=== PATIENT | male | born 1950 ===

== ENCOUNTER 2020-11-11 14:36 | Inpatient (IN) ==
[2020-11-11] MEDS ORDERED: GLUCAGON 1 MG VIAL IM PRN ×2 (17:08)
[2020-11-11] MEDS ORDERED: MAGNESIUM SULF RIDER 2 GM in PREMIX 1 EACH IV PRN (17:08)
[2020-11-11] MEDS ORDERED: MAGNESIUM SULF RIDER 4 GM in PREMIX 1 EACH IV PRN (17:08)
[2020-11-11] MEDS ORDERED: DEXTROSE 50% 25 GM/50 ML VIAL IV PRN ×2 (17:08)
[2020-11-11] MEDS ORDERED: ACETAMINOPHEN 325 MG TABLET PO PRN (17:08)
[2020-11-11] MEDS ORDERED: ONDANSETRON 4 MG/2 ML VIAL IV PRN (17:08)
[2020-11-11] MEDS ORDERED: LABETALOL 20 MG/4 ML SYRINGE IV PRN (18:36)
[2020-11-11] MEDS: ENOXAPARIN 30 MG/0.3 ML SYRINGE SUBCUT SCH (21:58)
[2020-11-11] MEDS: INSULIN REGULAR 100 UNIT/ML SUBCUT SCH (21:58)
[2020-11-12 05:18] LABS: Basophils % 0.6 % (0.0-0.8); Eosinophils # 0.1 10*3/uL (0.0-0.87); Eosinophils % 1.2 % (0.00-10.9); Hematocrit 30.2 VOL% (42.0-52.0); Hemoglobin 9.7 GM/DL (14.0-18.0); Immature Granulocytes % 0.4 %; Immature Granulocytes Absolute 0.02 #; Lymphocytes # 0.7 10*3/uL (1.4-4.0); Lymphocytes % 13.5 % (21.2-54.2); Mean Corpuscular HGB Conc 32.1 GM/DL (32-36); Mean Corpuscular Volume 95.3 FL (87-102); Mean Platelet Volume 10.3 FL (9.6-12.0); Monocytes % 8.9 % (1.7-12.7); Neutrophils % 75.4 % (38.7-73.9); Platelet Count 193 T/CUMM (130-400); Red Blood Count 3.17 MC/CUMM (3.8-5.5); Red Cell Distribution Width 13.2 % (9.3-17.3); White Blood Count 5.2 T/CUMM (4-12)
[2020-11-12 05:48] LABS: Albumin 1.8 G/DL (3.4-5.0); Bilirubin,Total 0.4 MG/DL (0.2-1.0); Calcium 8.3 MG/DL (8.5-10.1); Osmolality,Calculated 295.6 MOS/KG (273-304); Potassium 4.1 MMOL/L (3.5-5.1); Total Protein 5.3 G/DL (5.0-7.5)
[2020-11-12] MEDS: FUROSEMIDE 40 MG/4 ML VIAL IV SCH ×2 (10:18→17:19)
[2020-11-12] MEDS: PANTOPRAZOLE 40 MG TABLET PO SCH (10:18)
[2020-11-12] MEDS: carvediloL 3.125 MG TABLET PO SCH ×2 (10:18→20:46)
[2020-11-12] MEDS: INSULIN REGULAR 100 UNIT/ML SUBCUT SCH ×4 (10:19→22:32)
[2020-11-12] MEDS ORDERED: hydrOXYzine HCL 25 MG TABLET PO ONE (13:32)
[2020-11-12 14:06] LABS: Bilirubin,Urine Negative (Negative); Blood, Urine Small mg/dL (Negative); Glucose,Urine (UA) 50 mg/dL (Negative); Hyaline Casts,Urine 3 /LPF (0-3); Ketones,Urine Negative (Negative); Nitrite,Urine Negative (Negative); Protein,Urine 100 MG/DL; RBC,Urine 2 /HPF (0-4); Squamous Epithelial Cell,Urine Occasional /HPF (0-10); Urine Appearance CLEAR (Clear); Urine Color Colorless (Yellow); Urine Specific Gravity 1.006 (1.001-1.035); Urine Urobilinogen < 2.0 EU/DL (0.2-1.0); WBC,Urine <1 /HPF (0-6)
[2020-11-12 18:09] LABS: Protein/Creatinine Ratio,Urine 6.5 RATIO
[2020-11-12 18:10] LABS: Microalbum/Creat Ratio Random 4537.5 RATIO (0-30)
[2020-11-12] MEDS: ENOXAPARIN 30 MG/0.3 ML SYRINGE SUBCUT SCH (20:47)
[2020-11-13 05:39] LABS: Basophils % 0.4 % (0.0-0.8); Eosinophils # 0.1 10*3/uL (0.0-0.87); Eosinophils % 1.7 % (0.00-10.9); Hematocrit 28.5 VOL% (42.0-52.0); Immature Granulocytes % 0.2 %; Immature Granulocytes Absolute 0.01 #; Lymphocytes # 0.5 10*3/uL (1.4-4.0); Lymphocytes % 9.8 % (21.2-54.2); Mean Corpuscular HGB Conc 31.6 GM/DL (32-36); Mean Corpuscular Volume 97.6 FL (87-102); Mean Platelet Volume 10.1 FL (9.6-12.0); Monocytes % 5.6 % (1.7-12.7); Neutrophils % 82.3 % (38.7-73.9); Platelet Count 170 T/CUMM (130-400); Red Blood Count 2.92 MC/CUMM (3.8-5.5); Red Cell Distribution Width 12.9 % (9.3-17.3); White Blood Count 5.3 T/CUMM (4-12)
[2020-11-13 05:59] LABS: Calcium 8.2 MG/DL (8.5-10.1); Osmolality,Calculated 292.8 MOS/KG (273-304); Potassium 4.3 MMOL/L (3.5-5.1)
[2020-11-13 06:11] LABS: Alanine Aminotransferase 20 U/L (16-61); Albumin 1.8 G/DL (3.4-5.0); Alkaline Phosphatase 94 U/L (45-117); Aspartate Amino Transferase 20 U/L (0-37); Bilirubin,Indirect 0.3 MG/DL (0.0-1.0); Bilirubin,Total < 0.39 MG/DL (0.2-1.0); Total Protein 4.7 G/DL (5.0-7.5)
[2020-11-13] MEDS: INSULIN REGULAR 100 UNIT/ML SUBCUT SCH ×3 (10:55→16:43)
[2020-11-13] MEDS: carvediloL 3.125 MG TABLET PO SCH (10:56)
[2020-11-13] MEDS: PANTOPRAZOLE 40 MG TABLET PO SCH (10:56)
[2020-11-13] MEDS: FUROSEMIDE 40 MG/4 ML VIAL IV SCH (10:58)
[2020-11-13] MEDS ORDERED: ASPIRIN EC 81 MG TABLET PO SCH (11:30)
[2020-11-13] MEDS ORDERED: BUMETANIDE 1 MG/4 ML VIAL IV SCH (16:00)
[2020-11-13 16:19] VITALS: BP 115/68
== END 2020-11-13 18:30 | disposition home or self-care (01) | DRG 291 ==
LOC: N.TELEN → SUATTDRO 16:37
PROVIDERS: ADMIT Internal Medicine; ATTEND Internal Medicine

== ENCOUNTER 2021-02-25 05:54 | Inpatient (IN) ==
[2021-02-25] MEDS ORDERED: DEXTROSE 50% 25 GM/50 ML VIAL IV PRN (10:39)
[2021-02-25] MEDS ORDERED: GLUCAGON 1 MG VIAL IM PRN (10:39)
[2021-02-25] MEDS ORDERED: ACETAMINOPHEN 325 MG TABLET PO PRN (10:41)
[2021-02-25] MEDS ORDERED: ZALEPLON 5 MG CAPSULE PO PRN (10:41)
[2021-02-25 11:38] LABS: Calcium 7.4 MG/DL (8.5-10.1); Osmolality,Calculated 296.4 MOS/KG (273-304); Potassium 4.4 MMOL/L (3.5-5.1)
[2021-02-25] MEDS: INSULIN LISPRO 100 UNIT/ML SUBCUT SCH ×3 (12:37→23:33)
[2021-02-25] MEDS: ISOSORBIDE MONONITRATE 30 MG TABLET PO SCH (13:07)
[2021-02-25] MEDS: FUROSEMIDE 40 MG/4 ML VIAL IV SCH (16:30)
[2021-02-25] MEDS: hydrALAZINE 25 MG TABLET PO SCH ×2 (16:30→23:32)
[2021-02-25] MEDS: DOCUSATE SODIUM 100 MG CAPSULE PO SCH (23:31)
[2021-02-25] MEDS: ATORVASTATIN 20 MG TABLET PO SCH (23:32)
[2021-02-26 06:01] LABS: Basophils % 0.3 % (0.0-0.8); Eosinophils # 0.1 10*3/uL (0.0-0.87); Hematocrit 33.8 VOL% (42.0-52.0); Hemoglobin 10.5 GM/DL (14.0-18.0); Immature Granulocytes % 0.6 %; Immature Granulocytes Absolute 0.07 #; Lymphocytes # 2.4 10*3/uL (1.4-4.0); Mean Corpuscular HGB Conc 31.1 GM/DL (32-36); Mean Corpuscular Volume 94.2 FL (87-102); Mean Platelet Volume 10.4 FL (9.6-12.0); Neutrophils % 72.1 % (38.7-73.9); Platelet Count 249 T/CUMM (130-400); Red Blood Count 3.59 MC/CUMM (3.8-5.5); Red Cell Distribution Width 13.2 % (9.3-17.3); White Blood Count 11.8 T/CUMM (4-12)
[2021-02-26 06:23] LABS: Albumin 1.8 G/DL (3.4-5.0); Bilirubin,Total 0.5 MG/DL (0.2-1.0); Calcium 7.9 MG/DL (8.5-10.1); Osmolality,Calculated 290.3 MOS/KG (273-304); Potassium 3.6 MMOL/L (3.5-5.1); Risk Ratio 2.15; Thyroid Stimulating Hormone 10.3 uIU/ml (0.358-3.74); Total Protein 6.1 G/DL (6.4-8.2); VLDL Cholesterol 9.4 MG/DL
[2021-02-26] MEDS: INSULIN LISPRO 100 UNIT/ML SUBCUT SCH ×4 (08:40→21:02)
[2021-02-26] MEDS: ASPIRIN EC 81 MG TABLET PO SCH (08:42)
[2021-02-26] MEDS: DOCUSATE SODIUM 100 MG CAPSULE PO SCH ×2 (08:42→21:35)
[2021-02-26] MEDS: PANTOPRAZOLE 40 MG TABLET PO SCH (08:42)
[2021-02-26] MEDS: ISOSORBIDE MONONITRATE 30 MG TABLET PO SCH (08:42)
[2021-02-26] MEDS: FUROSEMIDE 40 MG/4 ML VIAL IV SCH ×2 (08:42→16:55)
[2021-02-26] MEDS: hydrALAZINE 25 MG TABLET PO SCH ×3 (08:43→21:35)
[2021-02-26] MEDS ORDERED: carvediloL 25 MG TABLET PO SCH (09:00)
[2021-02-26] MEDS ORDERED: ALBUTEROL/IPRATROPIUM 3 ML NEB RESP TX ONE (15:45)
[2021-02-26 16:46] LABS: Basophils % 0.1 % (0.0-0.8); Eosinophils % 0.1 % (0.00-10.9); Hematocrit 28.3 VOL% (42.0-52.0); Hemoglobin 9.3 GM/DL (14.0-18.0); Immature Granulocytes % 0.5 %; Immature Granulocytes Absolute 0.05 #; Lymphocytes % 10.6 % (21.2-54.2); Mean Corpuscular HGB Conc 32.9 GM/DL (32-36); Mean Corpuscular Volume 92.5 FL (87-102); Mean Platelet Volume 10.2 FL (9.6-12.0); Monocytes % 4.1 % (1.7-12.7); Neutrophils % 84.6 % (38.7-73.9); Platelet Count 177 T/CUMM (130-400); Red Blood Count 3.06 MC/CUMM (3.8-5.5); Red Cell Distribution Width 13.4 % (9.3-17.3); White Blood Count 9.8 T/CUMM (4-12)
[2021-02-26 17:05] LABS: Calcium 7.1 MG/DL (8.5-10.1); Osmolality,Calculated 291.5 MOS/KG (273-304)
[2021-02-26 18:04] LABS: Band Neutrophils 4 % (0-10); Total Cells Counted 100
[2021-02-26 18:06] LABS: Atypical Lymphocytes Few; Hypochromasia 2+; Lymphocytes 9 % (20-55); Microcytosis 1+; Ovalocytes Few; Segmented Neutrophils 82 % (50-85)
[2021-02-26 18:07] LABS: Acanthocytes 1+; Burr Cells Few; Platelet Estimate Normal; Polychromasia Few
[2021-02-26] MEDS: carvediloL 6.25 MG TABLET PO SCH (21:35)
[2021-02-26] MEDS: ATORVASTATIN 20 MG TABLET PO SCH (21:35)
[2021-02-26] MEDS: ISOSORBIDE DINITRATE 20 MG TABLET PO SCH (21:36)
[2021-02-27 05:19] LABS: Basophils % 0.4 % (0.0-0.8); Eosinophils # 0.1 10*3/uL (0.0-0.87); Eosinophils % 1.1 % (0.00-10.9); Hematocrit 24.3 VOL% (42.0-52.0); Hemoglobin 7.7 GM/DL (14.0-18.0); Immature Granulocytes % 0.5 %; Immature Granulocytes Absolute 0.04 #; Lymphocytes # 1.5 10*3/uL (1.4-4.0); Lymphocytes % 18.2 % (21.2-54.2); Mean Corpuscular HGB Conc 31.7 GM/DL (32-36); Mean Corpuscular Volume 92.7 FL (87-102); Mean Platelet Volume 9.9 FL (9.6-12.0); Monocytes % 6.1 % (1.7-12.7); Neutrophils % 73.7 % (38.7-73.9); Platelet Count 168 T/CUMM (130-400); Red Blood Count 2.62 MC/CUMM (3.8-5.5); Red Cell Distribution Width 13.4 % (9.3-17.3); White Blood Count 8.4 T/CUMM (4-12)
[2021-02-27 05:45] LABS: Calcium 7.2 MG/DL (8.5-10.1); Osmolality,Calculated 293.4 MOS/KG (273-304); Potassium 3.9 MMOL/L (3.5-5.1)
[2021-02-27 06:10] LABS: Platelet Estimate Normal
[2021-02-27 06:11] LABS: Anisocytosis 1+; Burr Cells 2+; Poikilocytosis 1+
[2021-02-27] MEDS: INSULIN LISPRO 100 UNIT/ML SUBCUT SCH ×4 (08:04→21:04)
[2021-02-27] MEDS ORDERED: carvediloL 12.5 MG TABLET PO SCH (09:00)
[2021-02-27] MEDS ORDERED: ISOSORBIDE MONONITRATE 30 MG TABLET PO SCH (09:00)
[2021-02-27] MEDS: DOCUSATE SODIUM 100 MG CAPSULE PO SCH ×2 (09:42→21:02)
[2021-02-27] MEDS: ISOSORBIDE DINITRATE 20 MG TABLET PO SCH ×3 (09:42→21:03)
[2021-02-27] MEDS: PANTOPRAZOLE 40 MG TABLET PO SCH (09:42)
[2021-02-27] MEDS: carvediloL 6.25 MG TABLET PO SCH ×2 (09:42→21:03)
[2021-02-27] MEDS: hydrALAZINE 25 MG TABLET PO SCH (09:42)
[2021-02-27] MEDS: FUROSEMIDE 40 MG/4 ML VIAL IV SCH ×2 (09:45→16:53)
[2021-02-27] MEDS ORDERED: ALBUTEROL/IPRATROPIUM 3 ML NEB RESP TX ONE (14:13)
[2021-02-27] MEDS: ATORVASTATIN 20 MG TABLET PO SCH (21:03)
[2021-02-28 04:37] LABS: Basophils % 0.3 % (0.0-0.8); Eosinophils # 0.2 10*3/uL (0.0-0.87); Eosinophils % 3.2 % (0.00-10.9); Hematocrit 24.3 VOL% (42.0-52.0); Hemoglobin 7.5 GM/DL (14.0-18.0); Immature Granulocytes % 0.3 %; Immature Granulocytes Absolute 0.02 #; Lymphocytes # 1.6 10*3/uL (1.4-4.0); Lymphocytes % 21.7 % (21.2-54.2); Mean Corpuscular HGB Conc 30.9 GM/DL (32-36); Mean Corpuscular Volume 94.6 FL (87-102); Mean Platelet Volume 10.1 FL (9.6-12.0); Neutrophils % 68.5 % (38.7-73.9); Platelet Count 181 T/CUMM (130-400); Red Blood Count 2.57 MC/CUMM (3.8-5.5); Red Cell Distribution Width 13.7 % (9.3-17.3); White Blood Count 7.2 T/CUMM (4-12)
[2021-02-28 04:59] LABS: Osmolality,Calculated 298.3 MOS/KG (273-304); Potassium 3.9 MMOL/L (3.5-5.1)
[2021-02-28 05:02] LABS: Hypochromasia 1+; Microcytosis 1+
[2021-02-28 05:03] LABS: Burr Cells Slight; Platelet Estimate Adequate
[2021-02-28] MEDS: DOCUSATE SODIUM 100 MG CAPSULE PO SCH ×2 (09:10→21:03)
[2021-02-28] MEDS: ISOSORBIDE DINITRATE 20 MG TABLET PO SCH ×3 (09:10→21:03)
[2021-02-28] MEDS: carvediloL 6.25 MG TABLET PO SCH ×2 (09:11→21:02)
[2021-02-28] MEDS: PANTOPRAZOLE 40 MG TABLET PO SCH (09:11)
[2021-02-28] MEDS: INSULIN LISPRO 100 UNIT/ML SUBCUT SCH ×4 (09:13→21:04)
[2021-02-28] MEDS: ASPIRIN EC 81 MG TABLET PO SCH (09:13)
[2021-02-28] MEDS: FUROSEMIDE 40 MG/4 ML VIAL IV SCH ×2 (09:20→16:29)
[2021-02-28] MEDS: ATORVASTATIN 20 MG TABLET PO SCH (21:03)
[2021-03-01 07:11] LABS: Basophils % 0.3 % (0.0-0.8); Eosinophils # 0.4 10*3/uL (0.0-0.87); Eosinophils % 6.1 % (0.00-10.9); Hematocrit 27.6 VOL% (42.0-52.0); Hemoglobin 8.7 GM/DL (14.0-18.0); Immature Granulocytes % 0.6 %; Immature Granulocytes Absolute 0.04 #; Lymphocytes # 1.7 10*3/uL (1.4-4.0); Lymphocytes % 23.8 % (21.2-54.2); Mean Corpuscular HGB Conc 31.5 GM/DL (32-36); Mean Corpuscular Volume 93.9 FL (87-102); Mean Platelet Volume 9.5 FL (9.6-12.0); Monocytes % 5.6 % (1.7-12.7); Neutrophils % 63.6 % (38.7-73.9); Platelet Count 202 T/CUMM (130-400); Red Blood Count 2.94 MC/CUMM (3.8-5.5); Red Cell Distribution Width 13.5 % (9.3-17.3); White Blood Count 7.2 T/CUMM (4-12)
[2021-03-01 07:28] LABS: Calcium 7.3 MG/DL (8.5-10.1); Osmolality,Calculated 292.4 MOS/KG (273-304); Potassium 3.7 MMOL/L (3.5-5.1)
[2021-03-01] MEDS: INSULIN LISPRO 100 UNIT/ML SUBCUT SCH (07:51)
[2021-03-01 08:11] VITALS: BP 171/79
[2021-03-01] MEDS: ASPIRIN EC 81 MG TABLET PO SCH (09:11)
[2021-03-01] MEDS: carvediloL 6.25 MG TABLET PO SCH (09:11)
[2021-03-01] MEDS: ISOSORBIDE DINITRATE 20 MG TABLET PO SCH (09:11)
[2021-03-01] MEDS: DOCUSATE SODIUM 100 MG CAPSULE PO SCH (09:11)
[2021-03-01] MEDS: PANTOPRAZOLE 40 MG TABLET PO SCH (09:11)
[2021-03-01] MEDS: FUROSEMIDE 40 MG/4 ML VIAL IV SCH (09:17)
== END 2021-03-01 10:56 | disposition home health service (06) | DRG 291 ==
LOC: SUATTDRO 09:39 → N.TELES 09:39
PROVIDERS: ADMIT Internal Medicine; ATTEND Internal Medicine Geriatric Medicine

== ENCOUNTER 2021-04-23 00:01 | Inpatient (IN) ==
[2021-04-24] MEDS ORDERED: SODIUM CHLORIDE 0.9% 1,000 ML IV PRN (00:34)
[2021-04-24] MEDS ORDERED: diphenhydrAMINE CAP 25 MG CAPSULE PO PRN (00:40)
[2021-04-24] MEDS ORDERED: ZALEPLON 5 MG CAPSULE PO PRN (00:40)
[2021-04-24] MEDS ORDERED: NICOTINE 21 MG/24 HR PATCH TRANSDERM PRN (00:40)
[2021-04-24] MEDS ORDERED: hydrALAZINE 20 MG/1 ML VIAL IV PRN (00:40)
[2021-04-24] MEDS ORDERED: DEXTROSE 50% 25 GM/50 ML VIAL IV PRN ×2 (00:40)
[2021-04-24] MEDS ORDERED: ONDANSETRON 4 MG/2 ML VIAL IV PRN (00:40)
[2021-04-24] MEDS ORDERED: ACETAMINOPHEN 325 MG TABLET PO PRN (00:40)
[2021-04-24] MEDS ORDERED: guaiFENesin/DM ER 600-30 MG TABLET PO PRN (00:40)
[2021-04-24] MEDS ORDERED: GLUCAGON 1 MG VIAL IM PRN ×2 (00:40)
[2021-04-24 01:17] LABS: Basophils % 0.4 % (0.0-0.8); Eosinophils # 0.1 10*3/uL (0.0-0.87); Eosinophils % 2.7 % (0.00-10.9); Hematocrit 18.1 VOL% (42.0-52.0); Immature Granulocytes % 0.2 %; Immature Granulocytes Absolute 0.01 #; Lymphocytes # 0.7 10*3/uL (1.4-4.0); Lymphocytes % 15.6 % (21.2-54.2); Mean Corpuscular HGB Conc 33.7 GM/DL (32-36); Mean Corpuscular Volume 92.8 FL (87-102); Mean Platelet Volume 10.8 FL (9.6-12.0); Monocytes % 9.9 % (1.7-12.7); Neutrophils % 71.2 % (38.7-73.9); Platelet Count 139 T/CUMM (130-400); Red Cell Distribution Width 14.6 % (9.3-17.3); White Blood Count 4.7 T/CUMM (4-12)
[2021-04-24 01:18] LABS: Red Blood Count 1.95 MC/CUMM (3.8-5.5)
[2021-04-24 01:20] LABS: Hemoglobin 6.1 GM/DL (14.0-18.0)
[2021-04-24 01:24] LABS: Calcium 7.7 MG/DL (8.5-10.1); Osmolality,Calculated 314.1 MOS/KG (273-304); Potassium 3.9 MMOL/L (3.5-5.1)
[2021-04-24 01:57] LABS: Folate 21.07 NG/ML (5.38-24.0); Vitamin B12 1038 PG/ML (211-911)
[2021-04-24 02:15] LABS: Sedimentation Rate-Westergren 138 MM/HR (0-20)
[2021-04-24 08:41] LABS: Hemoglobin A1 (Alkaline) 98.1 % (96.5-98.5); Hemoglobin A2 (Alkaline) 1.9 % (1.5-3.5)
[2021-04-24] MEDS: INSULIN LISPRO 100 UNIT/ML SUBCUT SCH ×4 (09:09→21:25)
[2021-04-24] MEDS: carvediloL 3.125 MG TABLET PEG SCH ×2 (09:09→21:30)
[2021-04-24] MEDS: ASPIRIN EC 81 MG TABLET PO SCH (09:09)
[2021-04-24] MEDS: PANTOPRAZOLE 40 MG TABLET PO SCH (09:10)
[2021-04-24 09:48] LABS: Hematocrit 25.4 VOL% (42.0-52.0)
[2021-04-24 09:51] LABS: Hemoglobin 8.4 GM/DL (14.0-18.0)
[2021-04-24 13:27] LABS: % Iron Saturation 8.3 % (18-50)
[2021-04-24] MEDS: hydrALAZINE 25 MG TABLET PEG SCH (21:24)
[2021-04-24] MEDS: ATORVASTATIN 20 MG TABLET PEG SCH (21:24)
[2021-04-24] MEDS: levETIRAcetam LIQUID 100 MG/ML 30 ML/BOTTLE PEG SCH (21:24)
[2021-04-24] MEDS: INSULIN GLARGINE 100 UNIT/ML SUBCUT SCH (21:25)
[2021-04-25 05:26] LABS: Basophils % 0.6 % (0.0-0.8); Eosinophils # 0.2 10*3/uL (0.0-0.87); Eosinophils % 4.5 % (0.00-10.9); Hemoglobin 8.4 GM/DL (14.0-18.0); Immature Granulocytes % 0.3 %; Immature Granulocytes Absolute 0.01 #; Lymphocytes # 0.7 10*3/uL (1.4-4.0); Lymphocytes % 18.5 % (21.2-54.2); Mean Corpuscular HGB Conc 32.3 GM/DL (32-36); Mean Corpuscular Volume 93.2 FL (87-102); Mean Platelet Volume 11.2 FL (9.6-12.0); Monocytes % 14.3 % (1.7-12.7); Neutrophils % 61.8 % (38.7-73.9); Platelet Count 138 T/CUMM (130-400); Red Blood Count 2.79 MC/CUMM (3.8-5.5); Red Cell Distribution Width 14.5 % (9.3-17.3); White Blood Count 3.6 T/CUMM (4-12)
[2021-04-25 05:48] LABS: Calcium 8.5 MG/DL (8.5-10.1); Osmolality,Calculated 310.7 MOS/KG (273-304); Potassium 3.7 MMOL/L (3.5-5.1)
[2021-04-25] MEDS: carvediloL 3.125 MG TABLET PEG SCH ×2 (10:43→21:31)
[2021-04-25] MEDS: PANTOPRAZOLE 40 MG TABLET PO SCH (10:43)
[2021-04-25] MEDS: hydrALAZINE 25 MG TABLET PEG SCH ×3 (10:43→21:31)
[2021-04-25] MEDS: ASPIRIN EC 81 MG TABLET PO SCH (10:43)
[2021-04-25] MEDS: levETIRAcetam LIQUID 100 MG/ML 30 ML/BOTTLE PEG SCH ×2 (10:43→21:32)
[2021-04-25] MEDS: MULTIVITAMIN (BEROCCA) TABLET PEG SCH (10:43)
[2021-04-25] MEDS: INSULIN LISPRO 100 UNIT/ML SUBCUT SCH ×4 (10:44→21:31)
[2021-04-25] MEDS ORDERED: DEXTROSE 50% 25 GM/50 ML VIAL IV PRN (12:23)
[2021-04-25] MEDS ORDERED: GLUCAGON 1 MG VIAL IM PRN (12:23)
[2021-04-25] MEDS ORDERED: POLYETHYLENE GLYCOL POWDER 17 GM PACK PEG PRN (13:48)
[2021-04-25] MEDS: FERROUS SULFATE 325 MG TABLET PO SCH (14:25)
[2021-04-25] MEDS ORDERED: hydrALAZINE 25 MG TABLET PEG SCH ×2 (15:00→21:00)
[2021-04-25] MEDS: DOCUSATE/SENNA 50-8.6 MG TABLET PO SCH (21:31)
[2021-04-25] MEDS: ATORVASTATIN 20 MG TABLET PEG SCH (21:31)
[2021-04-25] MEDS: INSULIN GLARGINE 100 UNIT/ML SUBCUT SCH (21:32)
[2021-04-26 05:55] LABS: Basophils % 0.5 % (0.0-0.8); Eosinophils # 0.2 10*3/uL (0.0-0.87); Eosinophils % 6.2 % (0.00-10.9); Hematocrit 26.4 VOL% (42.0-52.0); Hemoglobin 8.7 GM/DL (14.0-18.0); Immature Granulocytes % 0.5 %; Immature Granulocytes Absolute 0.02 #; Lymphocytes # 0.7 10*3/uL (1.4-4.0); Lymphocytes % 18.2 % (21.2-54.2); Monocytes % 11.3 % (1.7-12.7); Neutrophils % 63.3 % (38.7-73.9); Platelet Count 143 T/CUMM (130-400); Red Blood Count 2.87 MC/CUMM (3.8-5.5); Red Cell Distribution Width 14.3 % (9.3-17.3); White Blood Count 3.9 T/CUMM (4-12)
[2021-04-26 06:22] LABS: Calcium 8.5 MG/DL (8.5-10.1); Osmolality,Calculated 305.7 MOS/KG (273-304); Potassium 3.8 MMOL/L (3.5-5.1)
[2021-04-26] MEDS ORDERED: TORSEMIDE 10 MG PEG SCH (09:00)
[2021-04-26] MEDS: levETIRAcetam LIQUID 100 MG/ML 30 ML/BOTTLE PEG SCH ×2 (09:33→20:31)
[2021-04-26] MEDS: FERROUS SULFATE 325 MG TABLET PO SCH (09:33)
[2021-04-26] MEDS: carvediloL 3.125 MG TABLET PEG SCH ×2 (09:33→20:29)
[2021-04-26] MEDS: hydrALAZINE 25 MG TABLET PEG SCH ×3 (09:33→20:29)
[2021-04-26] MEDS: MULTIVITAMIN (BEROCCA) TABLET PEG SCH (09:33)
[2021-04-26] MEDS: INSULIN LISPRO 100 UNIT/ML SUBCUT SCH ×4 (09:33→20:30)
[2021-04-26] MEDS: OMEPRAZOLE ODT 20 MG TABLET PEG SCH (09:34)
[2021-04-26] MEDS: ASPIRIN EC 81 MG TABLET PO SCH (09:34)
[2021-04-26] MEDS: DOCUSATE/SENNA 50-8.6 MG TABLET PO SCH ×2 (09:34→20:29)
[2021-04-26] MEDS: INSULIN GLARGINE 100 UNIT/ML SUBCUT SCH (20:29)
[2021-04-26] MEDS: ATORVASTATIN 20 MG TABLET PEG SCH (20:29)
[2021-04-27 05:41] LABS: Basophils % 0.2 % (0.0-0.8); Eosinophils # 0.3 10*3/uL (0.0-0.87); Eosinophils % 7.3 % (0.00-10.9); Hematocrit 31.1 VOL% (42.0-52.0); Hemoglobin 10.2 GM/DL (14.0-18.0); Immature Granulocytes % 0.5 %; Immature Granulocytes Absolute 0.02 #; Lymphocytes # 0.8 10*3/uL (1.4-4.0); Mean Corpuscular HGB Conc 32.8 GM/DL (32-36); Mean Platelet Volume 10.7 FL (9.6-12.0); Monocytes % 10.4 % (1.7-12.7); Neutrophils % 64.6 % (38.7-73.9); Platelet Count 169 T/CUMM (130-400); Red Blood Count 3.38 MC/CUMM (3.8-5.5); Red Cell Distribution Width 14.3 % (9.3-17.3); White Blood Count 4.4 T/CUMM (4-12)
[2021-04-27 06:34] LABS: Calcium 8.7 MG/DL (8.5-10.1); Osmolality,Calculated 301.8 MOS/KG (273-304); Potassium 3.9 MMOL/L (3.5-5.1)
[2021-04-27] MEDS: INSULIN LISPRO 100 UNIT/ML SUBCUT SCH ×4 (10:12→22:30)
[2021-04-27] MEDS: FERRIC GLUCONATE COMPLEX 125 MG in SODIUM CHLORIDE 0.9% 100 ML IV SCH (10:13)
[2021-04-27] MEDS: FERROUS SULFATE 325 MG TABLET PO SCH (10:17)
[2021-04-27] MEDS: DOCUSATE/SENNA 50-8.6 MG TABLET PO SCH ×2 (10:17→22:30)
[2021-04-27] MEDS: ASPIRIN EC 81 MG TABLET PO SCH (10:17)
[2021-04-27] MEDS: MULTIVITAMIN (BEROCCA) TABLET PEG SCH (10:17)
[2021-04-27] MEDS: hydrALAZINE 25 MG TABLET PEG SCH ×3 (10:18→22:30)
[2021-04-27] MEDS: levETIRAcetam LIQUID 100 MG/ML 30 ML/BOTTLE PEG SCH ×2 (10:18→22:29)
[2021-04-27] MEDS: carvediloL 3.125 MG TABLET PEG SCH ×2 (10:18→22:30)
[2021-04-27] MEDS: OMEPRAZOLE ODT 20 MG TABLET PEG SCH (10:18)
[2021-04-27] MEDS: INSULIN GLARGINE 100 UNIT/ML SUBCUT SCH (22:30)
[2021-04-27] MEDS: ATORVASTATIN 20 MG TABLET PEG SCH (22:30)
[2021-04-28 04:55] LABS: Basophils % 0.5 % (0.0-0.8); Eosinophils # 0.3 10*3/uL (0.0-0.87); Eosinophils % 6.3 % (0.00-10.9); Hemoglobin 9.1 GM/DL (14.0-18.0); Immature Granulocytes % 0.5 %; Immature Granulocytes Absolute 0.02 #; Lymphocytes # 0.7 10*3/uL (1.4-4.0); Lymphocytes % 15.2 % (21.2-54.2); Mean Corpuscular HGB Conc 33.7 GM/DL (32-36); Mean Corpuscular Volume 90.9 FL (87-102); Mean Platelet Volume 10.1 FL (9.6-12.0); Monocytes % 9.8 % (1.7-12.7); Neutrophils % 67.7 % (38.7-73.9); Platelet Count 158 T/CUMM (130-400); Red Blood Count 2.97 MC/CUMM (3.8-5.5); Red Cell Distribution Width 14.3 % (9.3-17.3); White Blood Count 4.3 T/CUMM (4-12)
[2021-04-28 05:15] LABS: Calcium 8.1 MG/DL (8.5-10.1); Osmolality,Calculated 299.8 MOS/KG (273-304); Potassium 3.9 MMOL/L (3.5-5.1)
[2021-04-28] MEDS: FERRIC GLUCONATE COMPLEX 125 MG in SODIUM CHLORIDE 0.9% 100 ML IV SCH (09:26)
[2021-04-28] MEDS: MULTIVITAMIN (BEROCCA) TABLET PEG SCH (09:27)
[2021-04-28] MEDS: DOCUSATE/SENNA 50-8.6 MG TABLET PO SCH (09:27)
[2021-04-28] MEDS: ASPIRIN EC 81 MG TABLET PO SCH (09:27)
[2021-04-28] MEDS: FERROUS SULFATE 325 MG TABLET PO SCH (09:28)
[2021-04-28] MEDS: carvediloL 3.125 MG TABLET PEG SCH (09:28)
[2021-04-28] MEDS: hydrALAZINE 25 MG TABLET PEG SCH (09:28)
[2021-04-28] MEDS: INSULIN LISPRO 100 UNIT/ML SUBCUT SCH ×2 (09:29→11:32)
[2021-04-28] MEDS: OMEPRAZOLE ODT 20 MG TABLET PEG SCH (09:30)
[2021-04-28] MEDS: levETIRAcetam LIQUID 100 MG/ML 30 ML/BOTTLE PEG SCH (09:31)
[2021-04-28 11:32] VITALS: BP 135/66
== END 2021-04-28 12:00 | DRG 812 ==
LOC: N.5E → SUATTDRO 00:01
PROVIDERS: ADMIT Internal Medicine; ATTEND Internal Medicine